=== PATIENT | female | born 1945 | race Two or more races ===

== ENCOUNTER → 2016-08-23 | Outpatient (REF) | payer MEDICARE, MEDICAID ==
[2016-08-24 11:48] LABS: MEAN CORPUSCULAR HEMOGLOBIN 28.9 pg (27.0-33.0); MEAN CORPUSCULAR HGB CONC 32.1 g/dl (32.0-36.5); MEAN CORPUSCULAR VOLUME 89.9 fl (80.0-96.0)
[2016-08-24 12:39] LABS: ALBUMIN 3.9 GM/DL (3.2-5.2); ALBUMIN/GLOBULIN RATIO 1.34 (1.00-1.93); ALKALINE PHOSPHATASE 87 U/L (45-117); ALT/SGPT 17 U/L (12-78); ANION GAP 5 MEQ/L (8-16); AST/SGOT 13 U/L (15-37); BILIRUBIN,TOTAL 0.5 MG/DL (0.2-1.0); BLOOD UREA NITROGEN 21 MG/DL (7-18); CALCIUM LEVEL 8.5 MG/DL (8.8-10.2); CARBON DIOXIDE LEVEL 30 MEQ/L (21-32); CHLORIDE LEVEL 105 MEQ/L (98-107); CHOLESTEROL LEVEL 190 MG/DL (<200); CREATININE FOR GFR 0.59 MG/DL (0.55-1.02); GLOMERULAR FILTRATION RATE > 60.0 (>45); GLUCOSE, FASTING 85 MG/DL (80-110); POTASSIUM SERUM 3.8 MEQ/L (3.5-5.1); SODIUM LEVEL 140 MEQ/L (136-145); TOTAL PROTEIN 6.8 GM/DL (6.4-8.2); TRIGLYCERIDES LEVEL 82 MG/DL (<150)
== END ==
LOC: M SFHCCLAY 15:22
PROVIDERS: ATTEND Nurse Practitioner
DX: K51.811 Other ulcerative colitis with rectal bleeding (principal); Z79.899 Other long term (current) drug therapy
CPT/HCPCS: 80053; 80061; 82306; 84443; 85027; G0463

== ENCOUNTER → 2016-10-25 | Outpatient (REF) | payer MEDICARE, MEDICAID ==
[~2016-10-25] MED LIST: PRED1TABL PO; PRED5SOL10 PO; SULF500TA PO
[2016-10-25 17:50] LABS: ADD MANUAL DIFFER YES; MEAN CORPUSCULAR HEMOGLOBIN 29.6 pg (27.0-33.0); MEAN CORPUSCULAR HGB CONC 32.6 g/dl (32.0-36.5); PLATELET COUNT, AUTOMATED 311 k/mm3 (150-450); RED CELL DISTRIBUTION WIDTH 13.7 % (11.5-14.5); WHITE BLOOD COUNT 8.4 K/mm3 (4.0-10.0)
[2016-10-25 18:57] LABS: ALBUMIN 3.7 GM/DL (3.2-5.2); ALBUMIN/GLOBULIN RATIO 1.09 (1.00-1.93); ALKALINE PHOSPHATASE 94 U/L (45-117); ALT/SGPT 19 U/L (12-78); ANION GAP 11 MEQ/L (8-16); AST/SGOT 15 U/L (15-37); BLOOD UREA NITROGEN 19 MG/DL (7-18); CALCIUM LEVEL 9.1 MG/DL (8.8-10.2); CARBON DIOXIDE LEVEL 25 MEQ/L (21-32); CHLORIDE LEVEL 103 MEQ/L (98-107); CREATININE FOR GFR 0.76 MG/DL (0.55-1.02); GLOMERULAR FILTRATION RATE > 60.0 (>45); GLUCOSE, FASTING 72 MG/DL (80-110); POTASSIUM SERUM 3.6 MEQ/L (3.5-5.1); SODIUM LEVEL 139 MEQ/L (136-145); TOTAL PROTEIN 7.1 GM/DL (6.4-8.2)
[2016-10-25 21:37] LABS: BANDS 2 % (< 11); EOSINOPHILS 1 % (0-5)
[2016-10-25 21:38] LABS: BURR CELLS 1+; SCHISTOCYTES 1+
[2016-11-02 00:08] LABS: DQ2(DQ1A 0501/0505,DQB1 02XX) Negative (.); DQ8(DQA1 03XX, DQB1 0302) Negative (.)
== END ==
LOC: M SFHCCLAY 11:32
PROVIDERS: ATTEND Family Medicine
DX: K51.90 Ulcerative colitis, unspecified, without complications (principal)
CPT/HCPCS: 80053; 81383; 85025; 86256; 87507; G0463

== ENCOUNTER → 2016-12-12 | Outpatient (CLI) | payer MEDICARE, MEDICAID ==
[~2016-12-12] VITALS: Ht 165.1 cm; Wt 81.6 kg
[~2016-12-12] MED LIST changes: +LIDOCAINE 2% INJ 100 MG/5 ML SDV (FOR ANES.) As Ordered ONE; +NS 1,000 ML IV ONE; +PROPOFOL 500 MG/50 ML VIAL As Ordered ONE
--- NOTE | 2016-12-12 09:39 | ROOR ---
Patient Name: Ashly Cooper Procedure Date: 12/12/2016 8:51 AM Date of : 1945 Age: 71 Room: [facility] Gender: Female Note Status: Finalized Procedure: Colonoscopy Indications: Chronic diarrhea, Exclusion of colitis, Follow-up of colitis Providers: Jaspreet JIMÉNEZ MD Referring MD: Isidoro Simental MD Requesting Provider: Medicines: Monitored Anesthesia Care Complications: No immediate complications. Procedure: Pre-Anesthesia Assessment: - The heart rate, respiratory rate, oxygen saturations, blood pressure, adequacy of pulmonary ventilation, and response to care were monitored throughout the procedure. The Colonoscope was introduced through the anus and advanced to 5 cm into the ileum. The colonoscopy was performed without difficulty. The patient tolerated the procedure well. The quality of the bowel preparation was good. Findings: The perianal and digital rectal examinations were normal. The terminal ileum appeared normal. Three sessile polyps were found in the proximal ascending colon and cecum. The polyps were 3 to 5 mm in size. These polyps were removed with a cold snare. Resection and retrieval were complete. To prevent bleeding after the polypectomy, one hemostatic clip was successfully placed (MR conditional). There was no bleeding at the end of the procedure. A non-bleeding mucosal tear as a result of scope trauma was found in the mid rectum. This measured 6 mm in length. To repair the defect, the tissue edges were approximated and three hemostatic clips were successfully placed (MR conditional). Closure of the defect was successful. There was no bleeding at the end of the procedure. Inflammation characterized by congestion (edema) and erythema was found in a continuous and circumferential pattern from the anus to the descending colon. This was mild in severity. Biopsies were taken with a cold forceps for histology. The exam was otherwise without abnormality on direct and retroflexion views. Impression: - The perianal area and examined portion of the ileum was normal. - Three 3 to 5 mm polyps in the proximal ascending colon and in the cecum, removed with a cold snare. Resected and retrieved. - One 4 mm polyp was seen and removed from the rectosigmoid area. A clip was placed. - Incidental mucosal tear in the mid rectum related to retroflexion. Three Clips (MR conditional) were placed. - Left-sided ulcerative colitis. Inflammation was found from the anus to the descending colon. This was mild in severity. Biopsied. - The examination was otherwise normal on direct and retroflexion views. Recommendation: - Use Lialda 1.2 gm at 4 tabs PO daily. - Telephone endoscopist for pathology results in 2 weeks. - Return to my office in 1 month. - (the script was sent to your pharmacy on file) Jaspreet Jiménez MD Jaspreet JIMÉNEZ MD 12/12/2016 9:38:42 AM This report has been signed electronically. Number of Addenda: 0 Note Initiated On: 12/12/2016 8:51 AM Estimated Blood Loss: Estimated blood loss: none.
[2016-12-12 09:55] VITALS: BP 163/82
== END ==
LOC: M OPP 07:51
PROVIDERS: ATTEND Internal Medicine Gastroenterology
DX: K52.9 Noninfective gastroenteritis and colitis, unspecified (principal); K63.5 Polyp of colon; D12.0 Benign neoplasm of cecum; S36.69XA Other injury of rectum, initial encounter; Y92.530 Ambulatory surgery center as the place of occurrence of the external cause; X58.XXXA Exposure to other specified factors, initial encounter; Y83.8 Other surgical procedures as the cause of abnormal reaction of the patient, or of later complication, without mention of misadventure at the time of the procedure; Y99.8 Other external cause status; Y93.89 Activity, other specified; K91.71 Accidental puncture and laceration of a digestive system organ or structure during a digestive system procedure; M19.90 Unspecified osteoarthritis, unspecified site; Z87.891 Personal history of nicotine dependence; Z79.899 Other long term (current) drug therapy; Z79.52 Long term (current) use of systemic steroids; Z88.1 Allergy status to other antibiotic agents

== ENCOUNTER → 2017-02-01 | Outpatient (REF) | payer MEDICARE, MEDICAID ==
[~2017-02-01] MED LIST changes: -LIDOCAINE 2% INJ 100 MG/5 ML SDV (FOR ANES.) As Ordered ONE; -NS 1,000 ML IV ONE; -PROPOFOL 500 MG/50 ML VIAL As Ordered ONE
[2017-02-02 12:28] LABS: ALBUMIN 3.7 GM/DL (3.2-5.2); ALBUMIN/GLOBULIN RATIO 1.28 (1.00-1.93); ALKALINE PHOSPHATASE 71 U/L (45-117); ALT/SGPT 21 U/L (12-78); ANION GAP 9 MEQ/L (8-16); AST/SGOT 15 U/L (15-37); BILIRUBIN,TOTAL 0.6 MG/DL (0.2-1.0); BLOOD UREA NITROGEN 19 MG/DL (7-18); CALCIUM LEVEL 8.9 MG/DL (8.8-10.2); CARBON DIOXIDE LEVEL 28 MEQ/L (21-32); CHLORIDE LEVEL 105 MEQ/L (98-107); CREATININE FOR GFR 0.74 MG/DL (0.55-1.02); GLOMERULAR FILTRATION RATE > 60.0 (>45); GLUCOSE, FASTING 143 MG/DL (80-110); POTASSIUM SERUM 3.8 MEQ/L (3.5-5.1); SODIUM LEVEL 142 MEQ/L (136-145); TOTAL PROTEIN 6.6 GM/DL (6.4-8.2)
[2017-02-02 12:42] LABS: BASO # 0.1 K/mm3 (0.0-0.2); BASO % 1.1 % (0.0-1.0); EOS # 0.1 K/mm3 (0.0-0.50); EOS % 0.7 % (0.0-3.0); LARGE UNSTAINED CELL # 0.1 K/mm3 (0.0-0.4); LARGE UNSTAINED CELL % 0.5 % (0.0-4.0); LYMPH # 0.8 K/mm3 (1.5-4.5); LYMPH % 9.2 % (24.0-44.0); MEAN CORPUSCULAR HEMOGLOBIN 31.4 pg (27.0-33.0); MEAN CORPUSCULAR HGB CONC 33.4 g/dl (32.0-36.5); MONO # 0.3 K/mm3 (0.0-0.8); MONO % 3.4 % (0.0-5.0); NEUTROPHILS # 7.7 K/mm3 (1.8-7.7); NEUTROPHILS % 85.1 % (36.0-66.0); PLATELET COUNT, AUTOMATED 279 k/mm3 (150-450); RED CELL DISTRIBUTION WIDTH 14.1 % (11.5-14.5)
== END ==
LOC: M LABDRAWC 11:30
PROVIDERS: ATTEND Internal Medicine Gastroenterology
DX: K51.318 Ulcerative (chronic) rectosigmoiditis with other complication (principal)

== ENCOUNTER → 2017-04-23 | Outpatient (CLI) | payer MEDICARE, MEDICAID ==
[2017-04-23 13:52] LABS: BASO % 0.4 % (0.0-1.0); EOS % 0.4 % (0.0-3.0); IMMATURE GRANULOCYTE % 0.5 % (0-0); LYMPH % 8.4 % (24.0-44.0); MEAN CORPUSCULAR HGB CONC 32.9 g/dl (32.0-36.5); MEAN CORPUSCULAR VOLUME 91.3 fl (80.0-96.0); MONO # 0.3 10^3/uL (0.0-0.8); NEUTROPHILS # 9.8 10^3/uL (1.8-7.7); NEUTROPHILS % 87.3 % (36.0-66.0); PLATELET COUNT, AUTOMATED 293 10^3/uL (150-450); RED CELL DISTRIBUTION WIDTH 14.2 % (11.5-14.5); WHITE BLOOD COUNT 11.3 10^3/uL (4.0-10.0)
[2017-04-23 14:45] LABS: ALBUMIN/GLOBULIN RATIO 1.25 (1.00-1.93); ALKALINE PHOSPHATASE 75 U/L (45-117); ALT/SGPT 20 U/L (12-78); ANION GAP 8 MEQ/L (8-16); AST/SGOT 15 U/L (7-37); BILIRUBIN,TOTAL 0.4 MG/DL (0.2-1.0); BLOOD UREA NITROGEN 15 MG/DL (7-18); CARBON DIOXIDE LEVEL 30 MEQ/L (21-32); CHLORIDE LEVEL 105 MEQ/L (98-107); CREATININE FOR GFR 0.67 MG/DL (0.55-1.02); GLOMERULAR FILTRATION RATE > 60.0 (>45); GLUCOSE, FASTING 96 MG/DL (80-110); POTASSIUM SERUM 3.7 MEQ/L (3.5-5.1); SODIUM LEVEL 143 MEQ/L (136-145); TOTAL PROTEIN 7.2 GM/DL (6.4-8.2)
[2017-04-27 12:21] LABS: TPMTGEN1 SEE SEPARATE REPORT
[2017-04-27 12:22] LABS: PROMETHEUS IBD ANTIBODIES SEE SEPARATE REPORT; PROMETHEUS IBD SNP SEE SEPARATE REPORT
== END ==
LOC: M LAB 12:55
PROVIDERS: ATTEND Internal Medicine Gastroenterology
DX: K51.311 Ulcerative (chronic) rectosigmoiditis with rectal bleeding (principal)

== ENCOUNTER → 2018-06-03 | Outpatient (REF) | payer MEDICARE, MEDICAID ==
[2018-06-03 16:57] LABS: ALT/SGPT 18 U/L (12-78); BILIRUBIN,TOTAL 0.6 MG/DL (0.2-1.0); BLOOD UREA NITROGEN 18 MG/DL (7-18); CALCIUM LEVEL 8.9 MG/DL (8.8-10.2); CARBON DIOXIDE LEVEL 27 MEQ/L (21-32); CHLORIDE LEVEL 105 MEQ/L (98-107); CHOLESTEROL LEVEL 147 MG/DL (<200); CHOLESTEROL RISK RATIO 3.418 (<5); CREATININE FOR GFR 0.48 MG/DL (0.55-1.30); GLOMERULAR FILTRATION RATE > 60.0 (>39); GLUCOSE, FASTING 90 MG/DL (70-100); HDL CHOLESTEROL 43 MG/DL (>40); LDL CHOLESTEROL 91 MG/DL (<100); NON-HDL-C 104 MG/DL; SODIUM LEVEL 143 MEQ/L (136-145); TOTAL PROTEIN 6.7 GM/DL (6.4-8.2); TRIGLYCERIDES LEVEL 65 MG/DL (<150)
[2018-06-03 17:09] LABS: HEMATOCRIT 42.2 % (36.0-47.0); HEMOGLOBIN 13.7 g/dl (12.0-15.5); MEAN CORPUSCULAR HEMOGLOBIN 29.1 pg (27.0-33.0); MEAN CORPUSCULAR HGB CONC 32.5 g/dl (32.0-36.5); MEAN CORPUSCULAR VOLUME 89.6 fl (80.0-96.0); PLATELET COUNT, AUTOMATED 262 10^3/uL (150-450); RED BLOOD COUNT 4.71 10^6/uL (4.00-5.40); WHITE BLOOD COUNT 8.6 10^3/uL (4.0-10.0)
== END ==
LOC: M SFHCCLAY 10:45
PROVIDERS: ATTEND Family Medicine
DX: E78.00 Pure hypercholesterolemia, unspecified (principal); K51.90 Ulcerative colitis, unspecified, without complications

== ENCOUNTER → 2019-07-25 | Outpatient (REF) | payer MEDICARE, MEDICAID ==
[2019-07-25 18:27] LABS: HEMOGLOBIN 14.1 g/dl (12.0-15.5); MEAN CORPUSCULAR VOLUME 93.6 fl (80.0-96.0); PLATELET COUNT, AUTOMATED 246 10^3/uL (150-450); WHITE BLOOD COUNT 7.9 10^3/uL (4.0-10.0)
[2019-07-25 18:54] LABS: ALBUMIN 4.3 GM/DL (3.2-5.2); ALT/SGPT 26 U/L (12-78); BILIRUBIN,TOTAL 0.5 MG/DL (0.2-1.0); BLOOD UREA NITROGEN 21 MG/DL (7-18); CALCIUM LEVEL 8.8 MG/DL (8.8-10.2); CARBON DIOXIDE LEVEL 30 MEQ/L (21-32); CHLORIDE LEVEL 106 MEQ/L (98-107); CREATININE FOR GFR 0.56 MG/DL (0.55-1.30); GLOMERULAR FILTRATION RATE > 60.0 (>39); GLUCOSE, FASTING 85 MG/DL (70-100); POTASSIUM SERUM 3.8 MEQ/L (3.5-5.1); SODIUM LEVEL 142 MEQ/L (136-145); TOTAL PROTEIN 6.9 GM/DL (6.4-8.2)
== END ==
LOC: M SFHCCLAY 15:16
PROVIDERS: ATTEND Family Medicine
DX: Z00.00 Encounter for general adult medical examination without abnormal findings (principal); Z11.1 Encounter for screening for respiratory tuberculosis; K51.90 Ulcerative colitis, unspecified, without complications

== ENCOUNTER → 2020-06-16 | Outpatient (CLI) | payer MEDICARE ==
--- NOTE | 2020-06-21 13:55 | REP ---
INDICATION: N64.59 INVERTED LT NIPPLE. Inverted nipple x2 years. Occasional discharge white in color intermittent for many years. History of left breast cysts and 2 cyst removals of from the left breast in 1973 and 1994. COMPARISON: No comparison breast imaging could be retrieved. TECHNIQUE: Bilateral CC and MLO) view(s) were taken. A true mL view of the left breast was obtained and 3D tomography was obtained. Targeted left breast sonography was performed. FINDINGS: The breast parenchyma is heterogeneously dense in a pattern which may inhibit the sensitivity mammography. There are scattered benign calcifications. The left nipple appears somewhat flat compared to the right but not frankly inverted mammographically on tomographic and mammographic images. There is a well-circumscribed 7 mm nodule in the lateral aspect of the left breast on the CC view at mid breast level tomographic Huong. This is not seen with confidence on the mL or MLO view. There is no evidence of subareolar mass on the left. No architectural distortion is seen. No worrisome microcalcifications are observed. The right breast is unremarkable. The Volpara volumetric breast density pattern is C. Targeted sonography left breast. Heterogeneous fibroglandular echotexture is seen sonographically. No subareolar mass is seen. No acoustic shadowing is observed. In the 3 o'clock position 1 cm from the nipple there is a 9 mm simple cyst. There is a 5 mm simple cyst 3.5 cm from the nipple in the 3 o'clock position. This is felt to account for the nodule seen mammographically. No other suspicious sonographic findings.. IMPRESSION: BI-RADS category 2 benign mammographic and left breast sonographic findings. 2 cyst seen. Clinical follow-up is advised. This patient's Tyrer-Cuzick lifetime breast cancer risk assessment score is 3.8%. This mammogram was interpreted with the aid of an FDA-approved computer-aided detection system. The patient states she had a clinical breast exam in May of 2020. The patient letter being requested is M2. RECOMMENDATION: Repeat screening mammography recommended 1 year (for women over 40). Clinical follow-up for patient's symptoms. <Electronically signed by Héctor Lozada > 06/21/20 [id number]
== END ==
LOC: M WHC 14:07
PROVIDERS: ATTEND Obstetrics & Gynecology
DX: N64.59 Other signs and symptoms in breast (principal); R92.1 Mammographic calcification found on diagnostic imaging of breast; N63.25 Unspecified lump in the left breast, overlapping quadrants
CPT/HCPCS: 76642; 77066; G0279

== ENCOUNTER → 2021-03-16 | Outpatient (CLI) | payer MEDICARE, MEDICAID ==
--- NOTE | 2021-03-17 11:24 | REP ---
INDICATION: RIGHT SIJ PX. COMPARISON: None. TECHNIQUE: Four views. FINDINGS: There is bilateral marginal osteophytosis every level. There is a minimal grade 1 L3 upon L4 spondylolisthesis and a like finding at 1 level below. There is universal L4-5 and L5-S1 disc space narrowing with posterior disc space narrowing at all other levels which is moderate. There is anterior lipping at every level. Vertebral body height is within normal limits. Degenerative facet joint changes are present at every level bilaterally. The pedicles appear to be intact bilaterally. Degenerative changes are seen involving the sacroiliac joints and hips. IMPRESSION: Chronic changes as described above. <Electronically signed by Ronnell Correa > 03/17/21 [id number]
== END ==
LOC: M RAD 16:29
PROVIDERS: ATTEND Chiropractor
DX: M53.3 Sacrococcygeal disorders, not elsewhere classified (principal); M25.78 Osteophyte, vertebrae; M51.35 Other intervertebral disc degeneration, thoracolumbar region

== ENCOUNTER → 2021-09-05 | Outpatient (CLI) | payer MEDICARE, MEDICAID ==
[~2021-09-05] MED LIST changes: +BUDE9TAB PO; +SULF500T56 PO; -SULF500TA PO
== END ==
LOC: M LABSMTC 11:30
PROVIDERS: ATTEND Anesthesiology
DX: Z11.52 Encounter for screening for COVID-19 (principal); Z20.822 Contact with and (suspected) exposure to COVID-19

== ENCOUNTER 2021-09-09 08:16 | Day surgery (SDC) | payer MEDICARE, MEDICAID ==
[~2021-09-09] VITALS: Ht 165.1 cm; Wt 63.2 kg
[~2021-09-09 08:16] MED LIST changes: +NS 1,000 ML IV ONE
[2021-09-09 09:40] VITALS: BP 113/73
[2021-09-09] MEDS ORDERED: propofoL 500 MG/50 ML VIAL As Ordered ONE (10:06)
[2021-09-09] MEDS ORDERED: LIDOCAINE 2% INJ 100 MG/5 ML SYRINGE As Ordered ONE (10:06)
== END 2021-09-09 10:03 | disposition home or self-care (01) ==
LOC: M OPP 08:16
PROVIDERS: ATTEND Internal Medicine Gastroenterology
DX: Z12.11 Encounter for screening for malignant neoplasm of colon (principal); Z86.010 Personal history of colon polyps; D12.5 Benign neoplasm of sigmoid colon; K51.30 Ulcerative (chronic) rectosigmoiditis without complications; K57.30 Diverticulosis of large intestine without perforation or abscess without bleeding; Z79.52 Long term (current) use of systemic steroids; Z88.1 Allergy status to other antibiotic agents; Z88.8 Allergy status to other drugs, medicaments and biological substances; Z87.19 Personal history of other diseases of the digestive system; Z87.891 Personal history of nicotine dependence

== ENCOUNTER 2021-09-28 12:07 | Outpatient (CLI) | payer MEDICARE, MEDICAID ==
[~2021-09-28] VITALS: Ht 165.1 cm; Wt 61.4 kg
[~2021-09-28 12:07] MED LIST changes: -NS 1,000 ML IV ONE
[2021-09-28] MEDS ORDERED: VEDOLIZUMAB 300 MG in NS 250 ML IV ONE (12:30)
[2021-09-28 12:51] VITALS: BP 143/75
[2021-09-28 13:25] VITALS: BP 157/81
== END 2021-09-28 13:46 | disposition home or self-care (01) ==
LOC: M INFU 12:07
PROVIDERS: ATTEND Internal Medicine Gastroenterology
DX: K51.90 Ulcerative colitis, unspecified, without complications (principal); Z88.1 Allergy status to other antibiotic agents
CPT/HCPCS: 96365; J3380

== ENCOUNTER 2021-10-12 11:58 | Outpatient (CLI) | payer MEDICARE, MEDICAID ==
[~2021-10-12] VITALS: Ht 165.1 cm; Wt 63.9 kg
[2021-10-12] MEDS ORDERED: VEDOLIZUMAB 300 MG in NS 250 ML IV ONE (12:00)
[2021-10-12 12:05] VITALS: BP_SYST 162; BP_SYST 167; BP_DIAS 86
[2021-10-12 13:15] VITALS: BP 139/79
== END 2021-10-12 13:15 | disposition home or self-care (01) ==
LOC: M INFU 11:58
PROVIDERS: ATTEND Internal Medicine Gastroenterology
DX: K51.90 Ulcerative colitis, unspecified, without complications (principal); Z88.1 Allergy status to other antibiotic agents
CPT/HCPCS: 96365; J3380

== ENCOUNTER 2021-11-16 11:45 | Outpatient (CLI) | payer MEDICARE, MEDICAID ==
[~2021-11-16] VITALS: Ht 165.1 cm; Wt 63.9 kg
[2021-11-16 11:45] VITALS: BP 122/63
[~2021-11-16 11:45] MED LIST changes: +VEDOLIZUMAB 300 MG in NS 250 ML IV ONE
[2021-11-16] MEDS ORDERED: VEDOLIZUMAB 300 MG in NS 250 ML IV ONE (12:00)
[2021-11-16 13:00] VITALS: BP 123/77
== END 2021-11-16 13:00 | disposition home or self-care (01) ==
LOC: M INFU 11:45
PROVIDERS: ATTEND Internal Medicine Gastroenterology
DX: K51.919 Ulcerative colitis, unspecified with unspecified complications (principal); Z88.1 Allergy status to other antibiotic agents
CPT/HCPCS: 96365; J3380

== ENCOUNTER 2022-01-11 12:00 | Outpatient (CLI) | payer MEDICARE, MEDICAID ==
[~2022-01-11] VITALS: Ht 165.1 cm; Wt 63.9 kg
[2022-01-11 12:00] VITALS: BP 156/73
[2022-01-11 14:19] VITALS: BP 138/75
== END 2022-01-11 14:20 | disposition home or self-care (01) ==
LOC: M INFU 12:00
PROVIDERS: ATTEND Internal Medicine Gastroenterology
DX: K51.90 Ulcerative colitis, unspecified, without complications (principal); Z88.1 Allergy status to other antibiotic agents
CPT/HCPCS: 96365; J3380

== ENCOUNTER 2022-03-08 12:35 | Outpatient (CLI) | payer MEDICARE, MEDICAID ==
[~2022-03-08] VITALS: Ht 165.1 cm; Wt 61.3 kg
[2022-03-08 12:35] VITALS: BP 169/79
[~2022-03-08 12:35] MED LIST changes: +ACETAMINOPHEN TAB 650MG DOSE (2X325MG) PO ONE; +VEDOLIZUMAB 300 MG in NS 250 ML IV ONE; +diphenhydrAMINE 25MG CAP PO ONE
[2022-03-08 13:45] VITALS: BP 134/91
== END 2022-03-08 13:45 | disposition home or self-care (01) ==
LOC: M INFU 12:35
PROVIDERS: ATTEND Internal Medicine Gastroenterology
DX: K51.90 Ulcerative colitis, unspecified, without complications (principal); Z88.1 Allergy status to other antibiotic agents
CPT/HCPCS: 96365; J3380

== ENCOUNTER → 2022-03-08 | Outpatient (CLI) | payer MEDICARE, MEDICAID ==
[~2022-03-08] MED LIST changes: -VEDOLIZUMAB 300 MG in NS 250 ML IV ONE
== END ==
LOC: M WHC 11:08
PROVIDERS: ATTEND Advanced Practice Midwife
DX: Z12.31 Encounter for screening mammogram for malignant neoplasm of breast (principal)

== ENCOUNTER 2022-05-03 12:15 | Outpatient (CLI) | payer MEDICARE, MEDICAID ==
[~2022-05-03] VITALS: Ht 165.1 cm; Wt 60.3 kg
[2022-05-03 12:15] VITALS: BP 145/79
[~2022-05-03 12:15] MED LIST changes: -ACETAMINOPHEN TAB 650MG DOSE (2X325MG) PO ONE; -diphenhydrAMINE 25MG CAP PO ONE
[2022-05-03 13:20] VITALS: BP 136/82
== END 2022-05-03 13:20 | disposition home or self-care (01) ==
LOC: M INFU 12:15
PROVIDERS: ATTEND Internal Medicine Gastroenterology
DX: K51.90 Ulcerative colitis, unspecified, without complications (principal); Z88.1 Allergy status to other antibiotic agents
CPT/HCPCS: 96365; J3380

== ENCOUNTER 2022-06-28 12:00 | Outpatient (CLI) | payer MEDICARE, MEDICAID ==
[~2022-06-28] VITALS: Ht 165.1 cm; Wt 60.3 kg
[2022-06-28 11:55] VITALS: BP 150/93
[2022-06-28 13:15] VITALS: BP 136/85
== END 2022-06-28 13:20 | disposition home or self-care (01) ==
LOC: M INFU 12:00
PROVIDERS: ATTEND Internal Medicine Gastroenterology
DX: K51.90 Ulcerative colitis, unspecified, without complications (principal); Z88.1 Allergy status to other antibiotic agents
CPT/HCPCS: 96365; J3380

== ENCOUNTER 2022-08-23 12:03 | Outpatient (CLI) | payer MEDICARE, MEDICAID ==
[~2022-08-23] VITALS: Ht 165.1 cm; Wt 60.3 kg
[~2022-08-23 12:03] MED LIST changes: +PRED15SO24 PO; -PRED5SOL10 PO
[2022-08-23 12:10] VITALS: BP 154/76
[2022-08-23 13:15] VITALS: BP 151/90
== END 2022-08-23 13:15 | disposition home or self-care (01) ==
LOC: M INFU 12:03
PROVIDERS: ATTEND Internal Medicine Gastroenterology
DX: Z88.0 Allergy status to penicillin (principal)
CPT/HCPCS: 96365; J3380

== ENCOUNTER → 2022-10-18 | Outpatient (CLI) | payer MEDICARE, MEDICAID ==
[~2022-10-18] VITALS: Ht 165.1 cm; Wt 60.3 kg
[2022-10-18 12:00] VITALS: BP 112/60
[2022-10-18 13:30] VITALS: BP 119/68
== END ==
LOC: M INFU 12:00
PROVIDERS: ATTEND Internal Medicine Gastroenterology
DX: K51.90 Ulcerative colitis, unspecified, without complications (principal); Z88.1 Allergy status to other antibiotic agents
CPT/HCPCS: 96365; J3380

== ENCOUNTER 2022-12-13 12:00 | Outpatient (CLI) | payer MEDICARE, MEDICAID ==
[~2022-12-13] VITALS: Ht 165.1 cm; Wt 68.0 kg
[2022-12-13 12:00] VITALS: BP 137/97; O2SAT 96
[2022-12-13 13:10] VITALS: BP 121/72; O2SAT 100
== END 2022-12-13 13:50 | disposition home or self-care (01) ==
LOC: M INFU 12:00
PROVIDERS: ATTEND Internal Medicine Gastroenterology
DX: K51.90 Ulcerative colitis, unspecified, without complications (principal); Z88.1 Allergy status to other antibiotic agents
CPT/HCPCS: 96365; J3380

== ENCOUNTER 2023-01-24 09:48 | Day surgery (SDC) | payer MEDICARE, MEDICAID ==
[~2023-01-24] VITALS: Ht 165.1 cm; Wt 67.9 kg
[~2023-01-24 09:48] MED LIST changes: +CURC1POW2 MC; +CURC500C PO; +ENTY1INJ IV; +ESTR0.1C5 VG; +MAGNESIUM OIL TOP; +NS 1,000 ML IV ONE; +RA C1OIL PO; +RA V400C PO; -VEDOLIZUMAB 300 MG in NS 250 ML IV ONE; +VITA-243 PO; +VITA40TA PO; +ZINC50TA4 PO
[2023-01-24] MEDS ORDERED: propofoL 200 MG/20 ML VIAL As Ordered ONE (10:59)
[2023-01-24] MEDS ORDERED: LIDOCAINE 2% 100MG/5ML SDV (FOR ANES.) As Ordered ONE (10:59)
[2023-01-24 12:15] VITALS: TEMP 97.1
[2023-01-24 12:37] VITALS: BP 140/78; O2SAT 97
== END 2023-01-24 12:45 | disposition home or self-care (01) ==
LOC: M OPP 09:48
PROVIDERS: ATTEND Internal Medicine Gastroenterology
DX: D12.5 Benign neoplasm of sigmoid colon (principal); D12.3 Benign neoplasm of transverse colon; K57.30 Diverticulosis of large intestine without perforation or abscess without bleeding; K63.89 Other specified diseases of intestine; K63.5 Polyp of colon; Z87.891 Personal history of nicotine dependence; Z79.620 Long term (current) use of immunosuppressive biologic; Z79.899 Other long term (current) drug therapy; Z91.89 Other specified personal risk factors, not elsewhere classified; Z88.1 Allergy status to other antibiotic agents

== ENCOUNTER 2023-02-07 12:00 | Outpatient (CLI) | payer MEDICARE, MEDICAID ==
[~2023-02-07] VITALS: Ht 162.6 cm; Wt 66.0 kg
[2023-02-07 12:00] VITALS: BP 128/77; O2SAT 99
[~2023-02-07 12:00] MED LIST changes: -NS 1,000 ML IV ONE; +VEDOLIZUMAB 300 MG in NS 250 ML IV ONE
[2023-02-07 13:20] VITALS: BP 139/86; O2SAT 95
== END 2023-02-07 13:20 | disposition home or self-care (01) ==
LOC: M INFU 12:00
PROVIDERS: ATTEND Internal Medicine Gastroenterology
DX: K51.90 Ulcerative colitis, unspecified, without complications (principal); Z88.1 Allergy status to other antibiotic agents
CPT/HCPCS: 96365; J3380

== ENCOUNTER → 2023-03-22 | Outpatient (CLI) | payer MEDICARE, MEDICAID ==
[~2023-03-22] MED LIST changes: -VEDOLIZUMAB 300 MG in NS 250 ML IV ONE
== END ==
LOC: M WHC 14:23
PROVIDERS: ATTEND Advanced Practice Midwife
DX: Z12.31 Encounter for screening mammogram for malignant neoplasm of breast (principal)

== ENCOUNTER 2023-04-04 12:00 | Outpatient (CLI) | payer MEDICARE, MEDICAID ==
[~2023-04-04] VITALS: Ht 165.1 cm; Wt 69.9 kg
[2023-04-04 12:00] VITALS: BP 130/77; O2SAT 97
[~2023-04-04 12:00] MED LIST changes: +VEDOLIZUMAB 300 MG in NS 250 ML IV ONE
[2023-04-04 13:15] VITALS: BP 144/76; O2SAT 100
== END 2023-04-04 13:15 ==
LOC: M INFU 12:00
PROVIDERS: ATTEND Internal Medicine Gastroenterology
DX: K51.90 Ulcerative colitis, unspecified, without complications (principal); Z88.1 Allergy status to other antibiotic agents
CPT/HCPCS: 96365; J3380

== ENCOUNTER → 2023-04-04 | Outpatient (CLI) | payer MEDICARE, MEDICAID | LOC: M RAD 13:25 | PROVIDERS: ATTEND Nurse Practitioner Adult Health | DX: M16.0 Bilateral primary osteoarthritis of hip (principal); M54.41 Lumbago with sciatica, right side; M86.18 Other acute osteomyelitis, other site ==

== ENCOUNTER 2023-05-30 11:54 | Outpatient (CLI) | payer MEDICAID, MEDICARE ==
[~2023-05-30] VITALS: Ht 165.1 cm; Wt 72.0 kg
[~2023-05-30 11:54] MED LIST changes: -VEDOLIZUMAB 300 MG in NS 250 ML IV ONE
[2023-05-30 12:18] VITALS: BP 164/89; O2SAT 99
[2023-05-30] MEDS: VEDOLIZUMAB 300 MG in NS 250 ML IV ONE ×2 (12:36→12:37)
[2023-05-30 13:25] VITALS: BP 144/80; O2SAT 99
== END 2023-05-30 13:25 ==
LOC: M INFU 11:54
PROVIDERS: ATTEND Internal Medicine Gastroenterology
DX: K51.90 Ulcerative colitis, unspecified, without complications (principal); Z88.1 Allergy status to other antibiotic agents; Z88.8 Allergy status to other drugs, medicaments and biological substances
CPT/HCPCS: 96365; J3380

== ENCOUNTER 2023-07-31 12:00 | Outpatient (CLI) | payer MEDICARE, MEDICAID ==
[~2023-07-31] VITALS: Ht 165.1 cm; Wt 70.5 kg
[2023-07-31 12:00] VITALS: BP 145/85; O2SAT 96
[~2023-07-31 12:00] MED LIST changes: -BUDE9TAB PO; +BUDE9TAB4 PO
[2023-07-31 12:12] VITALS: BP 145/85; TEMP 97; O2SAT 96
[2023-07-31] MEDS: VEDOLIZUMAB 300 MG in NS 250 ML IV ONE (12:32)
[2023-07-31 13:25] VITALS: BP 160/86; O2SAT 98
== END 2023-07-31 13:30 | disposition home or self-care (01) ==
LOC: M INFU 12:00
PROVIDERS: ATTEND Internal Medicine Gastroenterology
DX: K51.90 Ulcerative colitis, unspecified, without complications (principal); Z88.1 Allergy status to other antibiotic agents; Z88.8 Allergy status to other drugs, medicaments and biological substances
CPT/HCPCS: 96365; J3380

== ENCOUNTER 2023-09-25 11:40 | Outpatient (CLI) | payer MEDICARE ==
[~2023-09-25] VITALS: Ht 165.1 cm; Wt 71.4 kg
[2023-09-25] MEDS: VEDOLIZUMAB 300 MG in NS 250 ML IV ONE (12:08)
== END 2023-09-25 12:44 | disposition home or self-care (01) ==
LOC: M INFU 11:40
PROVIDERS: ATTEND Internal Medicine Gastroenterology
DX: K51.919 Ulcerative colitis, unspecified with unspecified complications (principal); Z88.1 Allergy status to other antibiotic agents
CPT/HCPCS: 96365; J3380

== ENCOUNTER 2023-11-20 11:33 | Outpatient (CLI) | payer MEDICARE ==
[~2023-11-20] VITALS: Ht 165.1 cm; Wt 68.1 kg
[2023-11-20 12:01] VITALS: BP 118/77; O2SAT 98
[2023-11-20] MEDS: VEDOLIZUMAB 300 MG in NS 250 ML IV ONE (12:32)
[2023-11-20 13:00] VITALS: BP 148/79; O2SAT 95
== END 2023-11-20 13:00 ==
LOC: M INFU 11:33
PROVIDERS: ATTEND Internal Medicine Gastroenterology
DX: K51.90 Ulcerative colitis, unspecified, without complications (principal); Z88.1 Allergy status to other antibiotic agents
CPT/HCPCS: 96365; J3380

== ENCOUNTER 2024-01-15 11:49 | Outpatient (CLI) | payer MEDICARE, MEDICAID ==
[~2024-01-15] VITALS: Ht 165.1 cm; Wt 70.4 kg
[2024-01-15 12:00] VITALS: BP 138/94; O2SAT 97
[2024-01-15] MEDS: VEDOLIZUMAB 300 MG in NS 250 ML IV ONE (12:43)
[2024-01-15 13:15] VITALS: BP 167/79; O2SAT 100
== END 2024-01-15 13:30 ==
LOC: M INFU 11:49
PROVIDERS: ATTEND Internal Medicine Gastroenterology
DX: K51.90 Ulcerative colitis, unspecified, without complications (principal); Z88.1 Allergy status to other antibiotic agents
CPT/HCPCS: 96365; J3380

== ENCOUNTER 2024-03-11 11:35 | Outpatient (CLI) | payer MEDICARE, MEDICAID ==
[~2024-03-11] VITALS: Ht 165.1 cm; Wt 70.0 kg
[2024-03-11 11:30] VITALS: BP 132/76; O2SAT 98
[2024-03-11] MEDS: VEDOLIZUMAB 300 MG in LR 250 ML IV ONE (13:03)
[2024-03-11 13:35] VITALS: BP 162/90; O2SAT 98
== END 2024-03-11 13:50 ==
LOC: M INFU 11:35
PROVIDERS: ATTEND Internal Medicine Gastroenterology
DX: K51.90 Ulcerative colitis, unspecified, without complications (principal); Z88.1 Allergy status to other antibiotic agents
CPT/HCPCS: 96365; J3380

== ENCOUNTER → 2024-04-02 | Outpatient (CLI) | payer MEDICARE, MEDICAID | LOC: M WHC 15:27 | PROVIDERS: ATTEND Advanced Practice Midwife | DX: Z12.31 Encounter for screening mammogram for malignant neoplasm of breast (principal); R92.333 Mammographic heterogeneous density, bilateral breasts ==

== ENCOUNTER 2024-05-06 11:30 | Outpatient (CLI) | payer MEDICARE, MEDICAID ==
[~2024-05-06] VITALS: Ht 165.1 cm; Wt 71.4 kg
[2024-05-06 11:30] VITALS: BP 144/73; O2SAT 97
[2024-05-06] MEDS: VEDOLIZUMAB 300 MG in NS 250 ML IV ONE (12:42)
[2024-05-06 13:15] VITALS: BP 160/84; O2SAT 96
== END 2024-05-06 13:20 ==
LOC: M INFU 11:30
PROVIDERS: ATTEND Internal Medicine Gastroenterology
DX: K51.90 Ulcerative colitis, unspecified, without complications (principal); Z88.1 Allergy status to other antibiotic agents
CPT/HCPCS: 96413; J3380

== ENCOUNTER 2024-07-01 11:23 | Outpatient (CLI) | payer MEDICARE, MEDICAID ==
[~2024-07-01] VITALS: Ht 165.1 cm; Wt 72.7 kg
[~2024-07-01 11:23] MED LIST changes: -RA V400C PO; +VITA268C PO
[2024-07-01] MEDS: VEDOLIZUMAB 300 MG in NS 250 ML IV ONE (12:23)
[2024-07-01 12:30] VITALS: BP 139/92; O2SAT 95
[2024-07-01 13:08] VITALS: BP 150/88
== END 2024-07-01 13:10 ==
LOC: M INFU 11:23
PROVIDERS: ATTEND Internal Medicine Gastroenterology
DX: K51.919 Ulcerative colitis, unspecified with unspecified complications (principal); Z88.1 Allergy status to other antibiotic agents
CPT/HCPCS: 96413; J3380

== ENCOUNTER 2024-08-26 10:35 | Outpatient (CLI) | payer MEDICARE, MEDICAID ==
[~2024-08-26] VITALS: Ht 165.1 cm; Wt 70.4 kg
[2024-08-26 10:45] VITALS: BP 159/91; O2SAT 96
[2024-08-26] MEDS: VEDOLIZUMAB 300 MG in NS 250 ML IV ONE (11:24)
[2024-08-26 11:55] VITALS: BP 161/94; O2SAT 96
== END 2024-08-26 12:00 ==
LOC: M INFU 10:35
PROVIDERS: ATTEND Internal Medicine Gastroenterology
DX: K51.90 Ulcerative colitis, unspecified, without complications (principal); Z88.1 Allergy status to other antibiotic agents
CPT/HCPCS: 96365; J3380